=== PATIENT | female | born 1975 | race Caucasian/White ===

== ENCOUNTER 2019-12-26 08:37 | Outpatient (CLI) | payer OTHER | END 2019-12-26 08:41 | disposition home or self-care (01) | LOC: TOM 08:37 | PROVIDERS: ATTEND Internal Medicine | DX: E03.8 Other specified hypothyroidism (principal); M54.5 Low back pain; E78.89 Other lipoprotein metabolism disorders; E55.9 Vitamin D deficiency, unspecified; R50.9 Fever, unspecified; Z20.828 Contact with and (suspected) exposure to other viral communicable diseases; Z03.818 Encounter for observation for suspected exposure to other biological agents ruled out | CPT/HCPCS: 70491; Q9965 ==